=== PATIENT | female | born 1980 | race Caucasian/White ===

== ENCOUNTER 2019-02-25 04:28 | Emergency (ER) | payer OTHER ==
[2019-02-25] MEDS ORDERED: NA CHLORIDE 0.9% 1,000 ML ONE (05:00)
[2019-02-25 05:25] LABS: Urine Blood 2+ (NEG); Urine Glucose NEGATIVE (NEG); Urine Specific Gravity >1.030 (1.005-1.030)
[2019-02-25 05:26] LABS: Urine Protein 1+ (NEG)
[2019-02-25 05:26] LABS: Urine Specific Gravity >1.030 (1.005-1.030)
[2019-02-25 05:29] LABS: Absolute Lymphocytes (CBC) 2.9 K/uL (0.7-4.9); Basophils % 0.3 % (0-1.3); Eosinophils % 1.2 % (0-4.4); Hematocrit 44.5 % (36.0-45.0); Lymphocytes % 37.4 % (15.3-44.8); MPV 7.6 fL (7.6-11.3); Monocytes % 10.7 % (3.3-12.3); RBC Red Blood Cell Count 4.62 M/uL (3.86-4.86)
[2019-02-25 05:33] LABS: Potassium 3.5 mmol/L (3.5-5.1)
--- NOTE | 2019-02-25 06:03 | ER ---
Nurse's Notes [facility] Name: Marielle Orozco Age: 38 yrs Sex: Female : 1980 Arrival Date: 02/25/2019 Time: 04:29 Bed 7 Private MD: Diagnosis: Threatened ; related conditions, unspecified, first trimester Presentation: 02/25 04:37 Presenting complaint: Patient states: "I found out I was yesterday with a home jd3 test. I took 2 and both said positive. today I am having bright red bleeding.". Transition of care: patient was not received from another setting of care. Onset of symptoms was February 25, 2019. Risk Assessment: Do you want to hurt yourself or someone else? Patient reports no desire to harm self or others. Initial Sepsis Screen: Does the patient meet any 2 criteria? No. Patient's initial sepsis screen is negative. Does the patient have a suspected source of infection? No. Patient's initial sepsis screen is negative. Care prior to arrival: None. 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 - Social history:: Smoking status: Patient/guardian denies using tobacco, the patient reports quitting approximately 0.5 years ago. - Ebola Screening: : Patient negative for fever greater than or equal to 101.5 degrees Fahrenheit, and additional compatible Ebola Virus Disease symptoms. - Family history:: not pertinent. Screenin:37 Abuse screen: Denies threats or abuse. Denies injuries from another. Nutritional cc3 screening: No deficits noted. Tuberculosis screening: No symptoms or risk factors identified. Fall Risk Ambulatory Aid- None/Bed Rest/Nurse Assist (0 pts). Gait- Normal/Bed Rest/Wheelchair (0 pts) Mental Status- Oriented to own ability (0 pts). Assessment: 04:42 General: Appears in no apparent distress. uncomfortable, Behavior is calm, cooperative, jd3 appropriate for age. Pain: Denies pain. Neuro: Level of Consciousness is awake, Oriented to person, place, time, situation. Cardiovascular: Denies chest pain, Capillary refill < 3 seconds Patient's skin is warm and dry. Respiratory: Airway is patent Respiratory effort is even, unlabored, Respiratory pattern is regular, symmetrical, Denies shortness of breath. GI: No signs and/or symptoms were reported involving the gastrointestinal system. : Reports vaginal bleeding that is bright red, moderate flow. EENT: No signs and/or symptoms were reported regarding the EENT system. Derm: Skin is intact, Skin is dry, Skin is normal, Skin temperature is warm. Musculoskeletal: Circulation, motion, and sensation intact. Range of motion: intact in all extremities. 05:51 Reassessment: Patient appears in no apparent distress at this time. Patient and/or jd3 family updated on plan of care and expected duration. Pain level reassessed. Patient is alert, oriented x 3, equal unlabored respirations, skin warm/dry/pink. Patient denies pain at this time. Vital Signs: 04:40 BP 124 / 96; Pulse 84; Resp 17 S; Temp 98.1(O); Pulse Ox 99% on R/A; Weight 79.38 kg jd3 (R); Height 5 ft. 4 in. (162.56 cm) (R); Pain 0/10; 05:32 BP 114 / 79 Supine; Pulse 79; Pulse Ox 99% on R/A; jd3 05:33 BP 123 / 82 Sitting; Pulse 72; Pulse Ox 100% on R/A; jd3 05:34 BP 121 / 91 Standing; Pulse 79; Resp 17 S; Pulse Ox 97% on R/A; Pain 0/10; jd3 04:40 Body Mass Index 30.04 (79.38 kg, 162.56 cm) jd3 ED Course: 04:29 Patient arrived in ED. ds1 04:37 Urban Enrique RN is Primary Nurse. jd3 04:37 Arm band placed on right wrist. Patient notified of wait time. cc3 04:37 Patient has correct armband on for positive identification. Bed in low position. Call cc3 light in reach. Side rails up X 1. Pulse ox on. NIBP on. 04:39 Triage completed. jd3 04:40 Aleksandar Mann MD is Attending Physician. [facility] 05:00 Inserted saline lock: 20 gauge in right antecubital area, using aseptic technique. cc3 Blood collected. 05:39 IV is swollen, with fluids not infusing freely, without good blood return, IV jd3 discontinued, intact, bleeding controlled, No redness/swelling at site. Pressure dressing applied. 06:01 Saul Mckee MD is Referral Physician. jim 07:24 No provider procedures requiring assistance completed. aa5 Administered Medications: 05:00 Drug: NS 0.9% 1000 ml Route: IV; Rate: 1 bolus; Site: right antecubital; cc3 07:10 Drug: RhoGAM (Human) 300 mcg Route: IM; Site: right deltoid; aa5 07:24 Follow up: Response: No adverse reaction aa5 Outcome: 06:02 Discharge ordered by . jim 07:24 Discharged to home ambulatory. aa5 07:24 Condition: stable 07:24 Discharge instructions given to patient, Instructed on discharge instructions, follow up and referral plans. medication usage, Demonstrated understanding of instructions, follow-up care, medications, Prescriptions given X 1. 07:25 Patient left the ED. aa5 Signatures: Aleksandar Mann MD MD cha Sanford, Demi ds1 Sherry Conde, RN RN aa5 Urban Enrique RN RN Anaid Gates 3
--- NOTE | 2019-02-25 06:03 | EDPHYS ---
Physician Documentation [facility] Name: Marielle Orozco Age: 38 yrs Sex: Female : 1980 Arrival Date: 02/25/2019 Time: 04:29 Bed 7 Private MD: CARLEEN Physician Aleksandar Mann HPI: 02/25 04:44 This 38 yrs old Female presents to ER via Ambulatory with complaints of jim Vaginal Bleeding, + Preg <12wks. 04:44 The patient presents to the emergency department with vaginal bleeding. The estimated jim gestational age is 4 weeks. course: care: none. Previous pregnancies: in previous pregnancies patient has had vaginal delivery. Associated signs and symptoms: The patient has no apparent associated signs or symptoms. The patient has not experienced similar symptoms in the past. 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 - Social history:: Smoking status: Patient/guardian denies using tobacco, the patient reports quitting approximately 0.5 years ago. - Ebola Screening: : Patient negative for fever greater than or equal to 101.5 degrees Fahrenheit, and additional compatible Ebola Virus Disease symptoms. - Family history:: not pertinent. ROS: 04:44 Constitutional: Negative for fever, chills, and weight loss, Eyes: Negative for injury, jim pain, redness, and discharge, ENT: Negative for injury, pain, and discharge, Neck: Negative for injury, pain, and swelling, Cardiovascular: Negative for chest pain, palpitations, and edema, Respiratory: Negative for shortness of breath, cough, wheezing, and pleuritic chest pain, Abdomen/GI: Negative for abdominal pain, nausea, vomiting, diarrhea, and constipation, Back: Negative for injury and pain, MS/Extremity: Negative for injury and deformity, Skin: Negative for injury, rash, and discoloration, Neuro: Negative for headache, weakness, numbness, tingling, and seizure, Psych: Negative for depression, anxiety, suicide ideation, homicidal ideation, and hallucinations, Allergy/Immunology: Negative for hives, rash, and allergies, Endocrine: Negative for neck swelling, polydipsia, polyuria, polyphagia, and marked weight changes, Hematologic/Lymphatic: Negative for swollen nodes, abnormal bleeding, and unusual bruising. 04:44 : Positive for vaginal bleeding. Exam: 04:44 Constitutional: This is a well developed, well nourished patient who is awake, alert, jim and in no acute distress. Head/Face: Normocephalic, atraumatic. Eyes: Pupils equal round and reactive to light, extra-ocular motions intact. Lids and lashes normal. Conjunctiva and sclera are non-icteric and not injected. Cornea within normal limits. Periorbital areas with no swelling, redness, or edema. ENT: Nares patent. No nasal discharge, no septal abnormalities noted. Tympanic membranes are normal and external auditory canals are clear. Oropharynx with no redness, swelling, or masses, exudates, or evidence of obstruction, uvula midline. Mucous membranes moist. Neck: Trachea midline, no thyromegaly or masses palpated, and no cervical lymphadenopathy. Supple, full range of motion without nuchal rigidity, or vertebral point tenderness. No Meningismus. Chest/axilla: Normal chest wall appearance and motion. Nontender with no deformity. No lesions are appreciated. Cardiovascular: Regular rate and rhythm with a normal S1 and S2. No gallops, murmurs, or rubs. Normal PMI, no JVD. No pulse deficits. Respiratory: Lungs have equal breath sounds bilaterally, clear to auscultation and percussion. No rales, rhonchi or wheezes noted. No increased work of breathing, no retractions or nasal flaring. Abdomen/GI: Soft, non-tender, with normal bowel sounds. No distension or tympany. No guarding or rebound. No evidence of tenderness throughout. Back: No spinal tenderness. No costovertebral tenderness. Full range of motion. Skin: Warm, dry with normal turgor. Normal color with no rashes, no lesions, and no evidence of cellulitis. MS/ Extremity: Pulses equal, no cyanosis. Neurovascular intact. Full, normal range of motion. Neuro: Awake and alert, GCS 15, oriented to person, place, time, and situation. Cranial nerves II-XII grossly intact. Motor strength 5/5 in all extremities. Sensory grossly intact. Cerebellar exam normal. Normal gait. Psych: Awake, alert, with orientation to person, place and time. Behavior, mood, and affect are within normal limits. 04:44 : CVA tenderness, is absent. Vital Signs: 04:40 BP 124 / 96; Pulse 84; Resp 17 S; Temp 98.1(O); Pulse Ox 99% on R/A; Weight 79.38 kg jd3 (R); Height 5 ft. 4 in. (162.56 cm) (R); Pain 0/10; 05:32 BP 114 / 79 Supine; Pulse 79; Pulse Ox 99% on R/A; jd3 05:33 BP 123 / 82 Sitting; Pulse 72; Pulse Ox 100% on R/A; jd3 05:34 BP 121 / 91 Standing; Pulse 79; Resp 17 S; Pulse Ox 97% on R/A; Pain 0/10; jd3 04:40 Body Mass Index 30.04 (79.38 kg, 162.56 cm) jd3 MDM: 04:43 Patient medically screened. [facility] 04:46 Data reviewed: vital signs, nurses notes, lab test result(s). [facility] 02/25 04:42 Order name: Quantitative Hcg [facility] 02/25 04:42 Order name: Abo/rh Typing [facility] 02/25 04:42 Order name: Basic Metabolic Panel; Complete Time: 05:48 [facility] 02/25 04:42 Order name: CBC with Diff; Complete Time: 05:48 [facility] 02/25 04:44 Order name: HCG, Quantitative; Complete Time: 05:48 [facility] 02/25 04:44 Order name: ABO/RH typing [facility] 02/25 04:50 Order name: Urine Dipstick--Ancillary (enter results); Complete Time: 05:48 02/25 04:51 Order name: Urine --Ancillary (enter results); Complete Time: 05:48 02/25 06:17 Order name: Rh Typing [facility] [place] 02/25 04:42 Order name: Urine Test (obtain specimen); Complete Time: 04:50 [facility] 02/25 04:42 Order name: IV Saline Lock; Complete Time: 05:04 [facility] 02/25 04:42 Order name: Labs collected and sent; Complete Time: 05:04 [facility] 02/25 04:42 Order name: NPO; Complete Time: 04:50 [facility] 02/25 04:42 Order name: Urine Dipstick-Ancillary (obtain specimen); Complete Time: 04:50 [facility] 02/25 06:17 Order name: Antibody Screen EDMS 02/25 06:17 Order name: Fetalscreen EDMS 02/25 06:17 Order name: Cord Rh type EDMS 02/25 06:17 Order name: Rhogam EDMS Administered Medications: 05:00 Drug: NS 0.9% 1000 ml Route: IV; Rate: 1 bolus; Site: right antecubital; cc3 07:10 Drug: RhoGAM (Human) 300 mcg Route: IM; Site: right deltoid; aa5 07:24 Follow up: Response: No adverse reaction aa5 Disposition: 02/25/19 06:02 Discharged to Home. Impression: Threatened , related conditions, unspecified, first trimester. - Condition is Stable. - Discharge Instructions: Threatened Miscarriage, Vaginal Bleeding During , First Trimester, First Trimester of , [id number], First Trimester of , Threatened Miscarriage, [id number], Pelvic Rest, Vaginal Bleeding During , First Trimester, [id number]. - Prescriptions for Vitamin 27- 0.8 mg Oral Tablet - take 1 tablet by ORAL route once daily; 30 tablet. - Medication Reconciliation Form, Thank You Letter, Antibiotic Education, Prescription Opioid Use form. - Follow up: Private Physician; When: 2 - 3 days; Reason: Recheck today's complaints, Continuance of care, Re-evaluation by your physician. Follow up: Saul Mckee; When: 2 - 3 days; Reason: Recheck today's complaints, Re-evaluation by your physician. - Problem is new. - Symptoms have improved. Signatures: Dispatcher [employer] EDMS Aleksandar Mann MD MD cha Calderon, Audri, RN RN aa5 Urban Enrique RN RN Anaid Gates cc3 Corrections: (The following items were deleted from the chart) 06:03 06:01 Antibody Screen ordered. EDMS EDMS 06:03 06:01 Fetalscreen ordered. EDMS EDMS 06:03 06:01 Cord Rh type ordered. EDMS EDMS 06:17 05:59 RHOGAM+BB.LAB.BRZ ordered. EDMO EDMS 06:17 06:00 Rh Typing ordered. [facility] [place] EDMO 06:26 06:02 02/25/2019 06:02 Discharged to Home. Impression: Threatened . Condition jim is Stable. Discharge Instructions: Threatened Miscarriage, Vaginal Bleeding During , First Trimester, First Trimester of , [id number], First Trimester of , Threatened Miscarriage, [id number], Pelvic Rest. Prescriptions for Vitamin 27-0.8 mg Oral Tablet - take 1 tablet by ORAL route once daily; 30 tablet. and Forms are Medication Reconciliation Form, Thank You Letter, Antibiotic Education, Prescription Opioid Use. Follow up: Private Physician; When: 2 - 3 days; Reason: Recheck today's complaints, Continuance of care, Re-evaluation by your physician. Follow up: Saul Mckee; When: 2 - 3 days; Reason: Recheck today's complaints, Re-evaluation by your physician. Problem is new. Symptoms have improved. [facility] 07:25 06:26 02/25/2019 06:02 Discharged to Home. Impression: Threatened ; aa5 related conditions, unspecified, first trimester. Condition is Stable. Discharge Instructions: Threatened Miscarriage, Vaginal Bleeding During , First Trimester, First Trimester of , [id number], First Trimester of , Threatened Miscarriage, [id number], Pelvic Rest. Prescriptions for Vitamin 27-0.8 mg Oral Tablet - take 1 tablet by ORAL route once daily; 30 tablet. and Forms are Medication Reconciliation Form, Thank You Letter, Antibiotic Education, Prescription Opioid Use. Follow up: Private Physician; When: 2 - 3 days; Reason: Recheck today's complaints, Continuance of care, Re-evaluation by your physician. Follow up: Saul Mckee; When: 2 - 3 days; Reason: Recheck today's complaints, Re-evaluation by your physician. Problem is new. Symptoms have improved. jim
== END 2019-02-25 07:25 | disposition home or self-care (01) ==
LOC: ER 04:28
DX: O20.0 Threatened abortion (principal); Z3A.01 Less than 8 weeks gestation of pregnancy; O99.281 Endocrine, nutritional and metabolic diseases complicating pregnancy, first trimester; E03.9 Hypothyroidism, unspecified; Z87.891 Personal history of nicotine dependence
CPT/HCPCS: 36415; 80048; 81003; 81025; 84702; 85025; 86850; 86900; 86901; 96372; 99284; J2790; J7030

== ENCOUNTER 2021-01-27 16:30 | Emergency (ER) | payer OTHER ==
--- OUTSIDE RECORDS SUMMARY | 2021-01-27 16:33 | XMS REPORT | Continuity of Care Document ---
:1980 Author Organization [facility] t Address [address] [place] [address] Care Team Providers Name Role Phone Stefan Fu Attending Clinician Kiersten Lopez DO Attending Clinician Provider, Urgent Care Attending Clinician Unavailable Doctor Unassigned, Name Attending Clinician Unavailable Ela Calderón Attending Clinician Payers Payer Name Policy Type Policy Number Effective Date Expiration Date S ource Problems Condition Condition Condition Status Onset Resolution Last Treating Co mments Source Name Details Category Date Date Treatment Clinician Date M25.50 - Diagnosis Active 2019-09-30 M emoria PAIN IN 09-30 11:51:00 l UNSPECIFIE M25.50 - 00:01: He rmann D JOINT PAIN IN 00 UNSPECIFIE D JOINT Active 09/30/2019 MH OPID Gareth Hypothyroi Problem Resolve 2021-01-16 Memoria dism d 21:57:10 l (disorder) Yonatan n Hypothyroi dism (disorder) Resolved Problem 01/16/2021 [facility] 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 21:57:10 l (disorder) Yonatan n Sjgren's syndrome (disorder) Resolved Problem 01/16/2021 [facility] Migraine Problem Active 2021-01-16 Mem oria (disorder) 21:57:10 l Migraine Yonatan n (disorder) Active Problem 01/16/2021 [facility] Thyroid Thyroid Problem Active [facility] dysfunctio dysfunctio Edbby kes - n n Memoria l [facility] ent Clinics Common Common Problem Active [facility] cold virus cold virus Debby kes - Memoria l [facility] Fever, Fever, Problem Active [facility] unspecifie unspecifie Debby kes - d fever d fever Memoria cause cause l [facility] Abnormal Abnormal Problem Active [facility] - function function Memori a test test l [facility] Clinics Malaise Malaise Problem Active [facility] - fatigue fatigue [facility] l [facility] Salivary Salivary Problem Active [facility] disorder [facility] - [facility]oria l [facility]ics Breathing Breathing Problem Active [facility] difficulty difficulty Debby kes - Memoria l [facility]ics Viral URI Viral URI Problem Active [facility] Allergies, Adverse Reactions, Alerts Allergy Allergy Status Severity Reaction(s) Onset Inactive Treating Comm ents Source Name Type Date Date Clinician No Known DA Active [facility] [address] [facility] No Known No Known Active Memori a Medicati Medicati l on on Gareth Solorzano Allergie s s Social History Social Habit Start Date Stop Date Quantity Comments Source Social History 2020-10-31 2020-10-31 [facility] [place] 19:27:41 19:27:41 Medications Ordered Filled Start Stop Current Ordering Indication Dosage Frequency Signature Comments Components Source Medication Medication Date Date Medication? Clinician (SIG) Name Name levothyroxi Yes 137 Memori a ne 137 mcg 2-24 microgram l (0.137 mg) 19:36: = 1 tab, Her mariscal oral tablet 00 PO, Daily, # 30 tab, 0 Refill(s) Albuterol Albuterol 2018-09 Yes Wanda [address] [facility] Sulfate HFA Sulfate HFA 1-29 [place] needed [facility] - 00:[facility]: [facility]oria 00 l [facility] Synthroid Synthroid 2018-09 Yes Wanda [address] [facility] 0-30 [place] in the [facility] - 00:00: morning on an empty l stomach Outpati ent Clinics Chantix Chantix Yes Wanda [address] [facility] Continuing Continuing [place] Debby kes - Month Nasir Month Nasir Memor ia l Outpati ent Clinics Synthroid Synthroid Yes Wanda [address] [facility] [place] ORALLY [facility] - ONCE DAILY Memoria l Outpati ent Clinics Vital Signs Vital Name Observation Time Observation Value Comments Source Systolic (mm Hg) 2020-10-31 19:21:00 Conrado rial Gareth Diastolic (mm Hg) 2020-10-31 19:21:00 Mem orial [place] Heart Rate 2020-10-31 19:21:00 [facility] Gareth Respitory Rate 2020-10-31 19:21:00 Memori al Gareth Height 2020-10-31 19:21:00 160.02 cm [facility] Gareth Weight 2020-10-31 19:21:00 [facility] [place] BMI Calculated 2020-10-31 19:21:00 Remedios al [place] Procedures Procedure Date / Time Performed Performing Clinician Jessica e Thyroidectomy [facility] Gareth [facility] by abdominal approach Encounters Start End Encounter Admission Attending Care Care Encounter Source Date/Time Date/Time Type Type Clinicians Facility Department ID 2021-01-14 2021-01-14 [id number] 14:30:00 14:30:00 Ko 02 Stefan 2020-11-28 2020-11-28 Outpatient ERIC FuSCHPATI MISCHER [id number] 15:45:00 15:45:00 Ko 01 Stefan 2020-11-28 2020-11-28 [facility] [id number] 09:06:00 15:19:00 Anny Arboleda [id number] [place] [id number] [place] [id number] 2020-11-28 2020-11-28 Urgent Provider, [facility] [id number] 08:20:48 09:05:44 Care [facility] [id number] Care [place] [id number] Professio [id number] nal [address] 2020-11-28 2020-11-28 Orders Doctor ASTON [id number] 00:00:00 00:00:00 Only Unassigned, AMPARO [id number] [place] [facility] [id number] [id number] 2020-11-01 2020-11-02 Outpatient MHMISCHER MHMISCHER [id number] 09:12:48 23:59:59 00 2020-10-31 2020-10-31 [facility] [id number] 13:45:00 23:59:59 Ko 00 Stefan 2019-09-30 2019-09-30 [facility] [id number] 11:42:00 23:59:00 Deb Mahmood 00 2019-08-05 2019-08-05 Outpatient Petra Olsen [id number] 10:40:00 10:40:00 [facility] ent [facility] 2019-07-06 2019-07-06 Outpatient Brazmakayla Lambertt [id number] 18:32:00 18:32:00 [facility] 2019-07-05 2019-07-05 [facility] [place] [id number] 17:57:00 17:57:00 [facility] ent [facility] 2019-07-04 2019-07-04 [facility] [id number] 13:00:00 13:00:00 [facility] ent [facility] Results Test Description Test Time Test Comments Results Result Sour e Comments FALLOPIAN 2019-03-14 TUBE,ECTOPIC PREGN 14:43:00 --------RUN DATE: 03/14/19 [facility] PAGE 1 RUN TIME: 1458 Specimen Inquiry RUN USER: INTERFACE --------[id number] LOC: KANDY U #: [id number] AGE/SX: 38/F ROOM: RE03/08/19REG DR: Brock Davenport MD : 84 BED: DIS: STATUS: [facility] TLOC: -------- SPEC #: [id number] RECD: 03/08/19 STATUS: HELENA ZEYAD #: [id number] CHILO: 03/08/19- SUBM DR: Brock Davenport MD ENTERED: 03/09/19 SP TYPE: FALLECT OTHR DR: ORDERED: LEVEL IV/2 CODES: [id number] - ENDOMETRIUM, NO [id number] - FALLOPIAN TUBE PROCEDURES: LEVEL IV (Incomplete) TISSUES: FALLOPIAN TUBE, NOS - LEFT FALLOPIAN TUBE WITH ECTOPIC ENDOMETRIUM, NOS - ENDOMETRIAL BIOPSY CLINICAL HISTORY 38 year old, left ectopic (kr) FINAL DIAGNOSIS Left fallopian tube with tubal ectopic , excision: - fallopian tube with ectopic identified Endometrium, biopsy: - fragments of endometrium with gestational alterations - no products of conception identified Tissue code 1 CPT code(s): 22297 x2 pkg/wpd 03/14/19 GROSS DESCRIPTION ANATOMIC SOURCE OF TISSUE (per Requisition): 1. Left fallopian tube with tubal ectopic 2. Endometrial biopsy Each specimen is labeled with the patient's name and medical record number. Specimen #1 is designated "left fallopian tube with tubal ectopic " and consists of a 6.0 cm in length and 1.8 cm in diameter fimbriated fallopian tube. The serosa is pink-purple and hyperemic. The lumen is dilated and occluded by 2.5 x 0.8 x 0.8 cm aggregate of dark red clotted blood and agosto-pink soft tissue. There is no definite villous material or an embryo. Wedger Machine sections are submitted labeled A1 and A2. CONTINUED ON NEXT PAGE --------RUN DATE: 03/14/19 [facility] PAGE 2 RUN TIME: 1458 Specimen Inquiry RUN USER: INTERFACE --------SPEC #: [id number] PATIENT: AC ESCOBAR #[id number] (Continued) GROSS DESCRIPTION (Continued) Specimen #2 is designated "endometrial biopsy" and consists of a 1.5 x 0.6 x 0.2 cm aggregate of multiple agosto-pink soft tissues admixed with blood-tinged mucoid material, submitted in toto labeled B1. neeraj 03/09/19 @ 5869 MICROSCOPIC DESCRIPTION Specimen #1 consists of a dilated segment of fallopian tube containing blood clot and a few immature chorionic villi containing mild trophoblast proliferation that is mainly polar. No central cisterns, intravillous inclusions or villous scalloping are identified. A completely transected segment of fallopian tube is identified. Specimen #2 consists of fragments of endometrium with gestational alterations. No immature chorionic villi, trophoblasts or structures are identified. jennifer/heydi 03/14/19 Signed Georgie Marquez 03/14/19 1443 -------- END OF REPORT HCG SERUM 2019-03-08 13:33:00 Test Item Value Reference Range Interpretation Comme nts HCG SERUM (test code = HCG) 503 INTERPRETATION:VALUES BETWEEN 15-20 milliInternatio nal units/mL NEED TO BERETESTED WITHIN 48 HOURS . All units for these ranges are in milliInternatio nalunits/mL0-1 WK AFTER CONCEPTION 0-5 0 1-2 WKS AFTER CONCEPTION 40-3002-3 WKS AFTER CONCEPTION 100-1,0003-4 WK S AFTER CONCEPTION 500-6,0001-2 MO NTHS AFTER CONCEPTION 5,000-200,0002- 3 MONTHS AFTER CONCEPTION 10,000-100,0002 ND TRIMESTER 3,000-50,0003RD TRIMESTER 1,000-50,000 SP ECIMENS WITH AN HCG LEVEL FROM 0-6 milliInternatio nalunits/mL SHOULD BE CONSIDERED NEGATIVE COMPREHENSIVE METABOLIC [id number] 13:27:00 Test Item Value Reference Range Interpretation Comments SODIUM (test code = NA) 138 mEq/L 135-145 N POTASSIUM (test code = 4.0 mEq/L 3.5-5.0 N K) CHLORIDE (test code = 103 mEq/L 100-115 N CL) CARBON DIOXIDE (test 26 mEq/L 22-31 N code = CO2) ANION GAP (test code = 12.70 10-20 N GAP) GLUCOSE (test code = 87 mg/dL 65-110 N GLU) BLOOD UREA NITROGEN 17 mg/dL 7-18 N (test code = BUN) GLOMERULAR FILTRATION 71 ml/min >60 N RATE (test code = GFR) CREATININE (test code = 0.9 mg/dL 0.5-1.0 N CREAT) TOTAL PROTEIN (test 8.0 gm/dL 6.3-8.2 N code = PROT) ALBUMIN (test code = 3.9 gm/dL 3.4-4.8 N ALB) CALCIUM (test code = 9.3 mg/dL 8.4-10.2 N CA) BILIRUBIN TOTAL (test 0.5 mg/dL 0.2-1.0 Result s verified by code = BILT) repeat analysis SGOT/AST (test code = 53 units/L 15-37 H Result s verified by AST) repeat analysis SGPT/ALT (test code = 98 units/L 12-78 H ALT) ALKALINE PHOSPHATASE 108 units/L 46-116 N TOTAL (test code = ALKP) CBC W/AUTO [id number] 13:14:00 Test Item Value Reference Range Interpretation Comments WHITE BLOOD CELL (test code = WBC) 9.1 K/mm3 6.6-12.1 N RED BLOOD CELL (test code = RBC) 4.53 M/mm3 3.45-5.01 N HEMOGLOBIN (test code = HGB) 14.4 g/dL 10.7-13.9 H HEMATOCRIT (test code = HCT) 43.8 % 32.1-42.1 H MEAN CELL VOLUME (test code = MCV) 97 fL 84.1-94.8 H MEAN CELL HGB (test code = MCH) 31.8 pg 27-35 N MEAN CELL HGB CONCETRATION (test 32.9 gm/dL 32.2-34.1 N code = MCHC) RED CELL DISTRIBUTION WIDTH (test 12.6 % 12.4-16.5 N code = RDW) PLATELET COUNT (test code = PLT) 231 K/mm3 133-385 N IMMATURE PLATELET FRACTION (test 0.0 % 0.0-10.8 N code = IPF) MEAN PLATELET VOLUME (test code = 9.0 fl 9.1-12.7 L MPV) NEUTROPHIL % (test code = NT%) 64.4 % 56.5-79.4 N LYMPHOCYTE % (test code = LY%) 26.1 % 14.3-34.3 N MONOCYTE % (test code = MO%) 8.2 % 5.1-10.4 N EOSINOPHIL % (test code = EO%) 0.8 % 0.1-3.0 N BASOPHIL % (test code = BA%) 0.3 % 0.1-1.0 N NEUTROPHIL # (test code = NT#) 5.9 K/mm3 LYMPHOCYTE # (test code = LY#) 2.4 K/mm3 MONOCYTE # (test code = MO#) 0.8 K/mm3 EOSINOPHIL # (test code = EO#) 0.07 K/mm3 BASOPHIL # (test code = BA#) 0.0 K/mm3 RBC MORPHOLOGY REQUIRED (test code NORMAL NORMAL = RBCM) PLATELET MORPHOLOGY REQUIRED (test NORMAL NORMAL code = PLTMR) - US PELVIS [id number] 15:13:00 Patient Name: AC ESCOBAR Unit No: [id number] EXAMS: CPT CODE: [id number] US PELVIS COMPLETE 26738 CLINICAL HISTORY: Left tubal . COMPARISON: March 04, 2019. Real- time ultrasound examination of the pelvis was performed using transabdominal and endovaginal approach. The uterus measures 8.5 x 3.7 x 4.9 cm in greatest dimensions with endometrium measuring 7 mm in AP dimension. No well-defined intrauterine sac is noted. There is no evidence of uterine fibroid or other significant uterine abnormality. The right ovary measures 29 x 16 x 16 mm and containsa corpus luteum measuring 15 x 13 x 13 mm. The left ovary measures 27 x 18 x 15 mm and has normalsonographic appearance. Separate from the left ovary, there is a 31 x 23 x 19 mm adnexal ring is identified. It is larger than previous examination and is suspicious for an ectopic in this location. Small amount of anechoic free fluid is present in the cul-de-sac. IMPRESSION: 1. No evidence of intrauterine seen. 2. Left adnexal ring with small amount of anechoic free fluid in the pelvis suspicious for a small ectopic . at 1513 Reported and signed by: Roland Beaulieu MD CC: Dilip Do MD Technologist: Tiffanie Owen RDMS, RVT Probe: Trnscrbd D/ (1513) t.SDR.YOS Orig Print D/T: S: 03/07/2019 (1516) [facility] NAME: SHAWNAC Radiology Department PHYS: HARAD. - Dilip Montes [address] : 1980 AGE: 38 SEX: F [place] [address] LOC: Contreras.RAD PHONE #: [phone] EXAM DATE: 03/07/2019 STATUS: REG CLI FAX #: [phone] RAD NO: Page 1 Signed Report Patient Name: AC ESCOBAR Harjit Unit No: [id number] EXAMS: CPT CODE: [id number] US PELVIS COMPLETE 64641 <Continued> [facility] NAME: AC ESCOBAR Radiology Department PHYS: HARAD. - Dilip Montes [address] : 1980 AGE: 38 SEX: F [place] [address] LOC: DuncanRAD PHONE #: [phone] EXAM DATE: 03/07/2019 STATUS: REG CLI FAX #: [phone] RAD NO: Page 2 Signed Report- US TRANSVAGINAL [id number] 15:13:00 Patient Name: AC ESCOBAR Unit No: [id number] EXAMS: CPT CODE: [id number] US TRANSVAGINAL W/PELVIS 60220 CLINICAL HISTORY: Left tubal . COMPARISON: March 04, 2019. Real-time ultrasound examination of the pelvis was performed using transabdominal and endovaginal approach. The uterus measures 8.5 x 3.7 x 4.9 cm in greatest dimensions with endometrium measuring 7 mm in AP dimension. No well-defined intrauterine sac is noted. There is no evidence of uterine fibroid or other significant uterine abnormality. The right ovary measures 29 x 16 x 16 mm and containsa corpus luteum measuring 15 x 13 x 13 mm. The left ovary measures 27 x 18 x 15 mm and has normalsonographic appearance. Separate from the left ovary, there is a 31 x 23 x 19 mm adnexal ring is identified. It is larger than previous examination and is suspicious for an ectopic in this location. Small amount of anechoic free fluid is present in the cul-de-sac. IMPRESSION: 1. No evidence of intrauterine seen. 2. Left adnexal ring with small amount of anechoic free fluid in the pelvis suspicious for a small ectopic . at 1513 Reported and signed by: Roland Beaulieu MD CC: Dilip Do MD Technologist: Tiffanie Owen RDMS, RVT Probe: [id number] Trnscrbd D/ (1513) [email or web address] Orig Print D/T: S: 03/07/2019 (1516) [facility] NAME: AC ESCOBAR Radiology Department PHYS: MICHAEL.Jeny - Dilip Montes [address] : 1980 AGE: 38 SEX: F [place], [place] [address] LOC: F.RAD PHONE #: [phone] EXAM DATE: 03/07/2019 STATUS: REG CLI FAX #: [phone] RAD NO: Page 1 Signed Report Patient Name: AC ESCOBAR Unit No: [id number] EXAMS: CPT CODE: [id number] US TRANSVAGINALW/PELVIS 38598 <Continued> [facility] NAME: AC ESCOBAR Radiology Department PHYS: MICHAEL. - Dilip Montes [address] : 1980 AGE: 38 SEX: F [place] [address] LOC: TYLER PHONE #: [phone] EXAM DATE: 03/07/2019 STATUS: REG CLI FAX #: [phone] RAD NO: Page 2 Signed ReportHCG [id number] 14:26:00 Test Item Value Reference Range Interpretation Comments HCG SERUM (test 409 INTERPRETATI ON:VALUES BETWEEN code = HCG) 15-20 milliInte rnational units/mL NEED T O BERETESTED WITHIN 48 HOURS . All units for these ranges ar e in milliInternatio nalunits/mL0-1 WK AFTER CONCEP TION 0-50 1-2 W KS AFTER CONCEPTION 40-3002-3 WKS A FTER CONCEPTION 100-1 ,0003-4 WKS AFTER CONCEPTIO N 500-6,0001-2 MO NTHS AFTER CONCEPTION 5,000-200,0002- 3 MONTHS AFTER CONCEPTION 10,000-100,0002 ND TRIMESTER 3,000-50,0003RD TRIMESTER 1 ,000-50,000 SPECIMENS WITH AN HCG LEVEL FROM 0-6 milliInternatio nalunits/mL SHOULD BE CONSI DERED NEGATIVE [phone] CALLCOMPREHENSIVE METABOLIC [id number] 14:13:00 Test Item Value Reference Range Interpretation Comments SODIUM (test code = NA) 138 mEq/L 135-145 N POTASSIUM (test code = K) 4.2 mEq/L 3.5-5.0 N CHLORIDE (test code = CL) 105 mEq/L 100-115 N CARBON DIOXIDE (test code = CO2) 29 mEq/L 22-31 N ANION GAP (test code = GAP) 8.70 10-20 L GLUCOSE (test code = GLU) 89 mg/dL 65-110 N BLOOD UREA NITROGEN (test code = 15 mg/dL 7-18 N BUN) GLOMERULAR FILTRATION RATE (test 56 ml/min >60 L code = GFR) CREATININE (test code = CREAT) 1.1 mg/dL 0.5-1.0 H TOTAL PROTEIN (test code = PROT) 7.6 gm/dL 6.3-8.2 N ALBUMIN (test code = ALB) 3.6 gm/dL 3.4-4.8 N CALCIUM (test code = CA) 8.6 mg/dL 8.4-10.2 N BILIRUBIN TOTAL (test code = 0.2 mg/dL 0.2-1.0 N BILT) SGOT/AST (test code = AST) 42 units/L 15-37 H SGPT/ALT (test code = ALT) 83 units/L 12-78 H ALKALINE PHOSPHATASE TOTAL (test 132 units/L 46-116 H code = ALKP) [phone] [facility] W/AUTO [id number] 14:02:00 Test Item Value Reference Range Interpretation Comments WHITE BLOOD CELL (test code = WBC) 8.9 K/mm3 6.6-12.1 N RED BLOOD CELL (test code = RBC) 4.22 M/mm3 3.45-5.01 N HEMOGLOBIN (test code = HGB) 13.3 g/dL 10.7-13.9 N HEMATOCRIT (test code = HCT) 42.3 % 32.1-42.1 H MEAN CELL VOLUME (test code = MCV) 100 fL 84.1-94.8 H MEAN CELL HGB (test code = MCH) 31.5 pg 27-35 N MEAN CELL HGB CONCETRATION (test 31.4 gm/dL 32.2-34.1 L code = MCHC) RED CELL DISTRIBUTION WIDTH (test 12.9 % 12.4-16.5 N code = RDW) PLATELET COUNT (test code = PLT) 243 K/mm3 133-385 N IMMATURE PLATELET FRACTION (test 0.0 % 0.0-10.8 N code = IPF) MEAN PLATELET VOLUME (test code = 9.2 fl 9.1-12.7 N MPV) NEUTROPHIL % (test code = NT%) 57.0 % 56.5-79.4 N LYMPHOCYTE % (test code = LY%) 31.6 % 14.3-34.3 N MONOCYTE % (test code = MO%) 9.6 % 5.1-10.4 N EOSINOPHIL % (test code = EO%) 1.1 % 0.1-3.0 N BASOPHIL % (test code = BA%) 0.5 % 0.1-1.0 N NEUTROPHIL # (test code = NT#) 5.0 K/mm3 LYMPHOCYTE # (test code = LY#) 2.8 K/mm3 MONOCYTE # (test code = MO#) 0.9 K/mm3 EOSINOPHIL # (test code = EO#) 0.10 K/mm3 BASOPHIL # (test code = BA#) 0.0 K/mm3 RBC MORPHOLOGY REQUIRED (test code NORMAL NORMAL = RBCM) PLATELET MORPHOLOGY REQUIRED (test NORMAL NORMAL code = PLTMR) [phone] CALL- US TRANSVAGINAL [id number] 09:45:00 Patient Name: AC ESCOBAR Unit No: [id number] EXAMS: CPT CODE: [id number] US TRANSVAGINAL W/PELVIS 01384 CLINICAL HISTORY: 5-6 weeks , bleeding, abnormal hCG levels. COMPARISON: None. Real-time ultrasound examination of the pelvis was performed using transabdominal and endovaginal approach. The uterus measures 8.2 x 3.6 x 4.1 cm in greatest dimensions with endometriummeasuring 6 mm in AP dimension. No well-defined intrauterine sac is noted. There is no evidence of uterine fibroid or other significant uterine abnormality. The right ovary measures 27 x 18 x 25 mm and contains a corpus luteum measuring 15 x 12 x 12 mm. The left ovary measures 27 x 23 x 22 mm and contains a 12 x 12 x 16 mm cyst within it. Separate from the left ovary, there is an 8 x 8 x 9 mm adnexal ring identified. No well-defined yolk sac or embryo is seen within it. Findings although not pathognomonic are somewhat suspicious for a small ectopic on the left side. There isno significant free fluid in the pelvis. IMPRESSION: 1. No evidence of intrauterine . 2. Extraovarian adnexal ring measuring 8 mm without yolk sac or embryo within it although not pathognomonic is suspicious for an ectopic . Correlation with hCG titers and appropriate follow-up is recommended. Findings were communicated to Dr. Vijay Do at 9:40 PM on March 04, 2019. FOR INTERNAL CODING PURPOSES ONLY R ESULT CODE: CVR at 0945 Reported and signed by: Roland Beaulieu MD CC: Dilip Hawkins Vijay Hi BAUTISTATechnologist: Marilynn Cruz RDMS Probe: [id number] Trnscrbd D/ (0945) Jyoti Orig Print D/T: S: 03/04/2019 (0948) [facility] NAME: AC ESCOBAR Radiology Department PHYS: BANNERAD.Jeny - Dilip Montes [address] : 1980 AGE: 38 SEX: F [place] [address] LOC: DuncanRAD PHONE #: [phone] EXAM DATE: 03/04/2019 STATUS: REG CLI FAX #: [phone] RAD NO: Page 1 Signed Report Patient Name: AC ESCOBAR Unit No: [id number] EXAMS: CPT CODE: [id number] US TRANSVAGINAL W/PELVIS 61460 <Continued> [facility] NAME: AC ESCOBAR Radiology Department PHYS: HARAD. - Dilip Montes [address] : 1980 AGE: 38 SEX: F [place] [address] LOC: DuncanRAD PHONE #: [phone] EXAM DATE: 03/04/2019 STATUS: REG CLI FAX #: [phone] RAD NO: Page 2 Signed Report- US PELVIS COMPLETE 2019-03-04 09:45:00 Patient Name: AC ESCOBAR Unit No: [id number] EXAMS: CPT CODE: [id number] US PELVIS COMPLETE 10579 CLINICAL HISTORY: 5- 6 weeks , bleeding, abnormal hCG levels. COMPARISON: None. Real- time ultrasound examination of the pelvis was performed using transabdominal and endovaginal approach. The uterus measures 8.2 x 3.6 x 4.1 cm in greatest dimensions with endometriummeasuring 6 mm in AP dimension. No well-defined intrauterine sac is noted. There is no evidence of uterine fibroid or other significant uterine abnormality. The right ovary measures 27 x 18 x 25 mm and contains a corpus luteum measuring 15 x 12 x 12 mm. The left ovary measures 27 x 23 x 22 mm and contains a 12 x 12 x 16 mm cyst within it. Separate from the left ovary, there is an 8 x 8 x 9 mm adnexal ring identified. No well-defined yolk sac or embryo is seen within it. Findings although not pathognomonic are somewhat suspicious for a small ectopic on the left side. There isno significant free fluid in the pelvis. IMPRESSION: 1. No evidence of intrauterine . 2. Extraovarian adnexal ring measuring 8 mm without yolk sac or embryo within it although not pathognomonic is suspicious for an ectopic . Correlation with hCG titers and approp riate follow-up is recommended. Findings were communicated to Dr. Vijay Do at 9:40 PM on March 04, 2019. FOR INTERNAL CODING PURPOSES ONLY RESULT CODE: CVR at 0945 Reported and signed by: Roland Beaulieu MD CC: Dilip Do MD Technologist: Marilynn Cruz RDMS Probe: Trnscrbd D/ (0945) MiguelangelS Orig Print D/T: S: 03/04/2019 (0948) [facility] NAME: AC ESCOBAR Radiology Department PHYS: AD. - Vijay DoDilip [address] : 1980 AGE: 38 SEX: F [place], [place] [address] LOC: F.RAD PHONE #: [phone] EXAM DATE: 03/04/2019 STATUS: REG CLI FAX #: [phone] RAD NO: Page 1 Signed Report Patient Name: AC ESCOBAR Unit No: [id number] EXAMS: CPT CODE: [id number] US PELVIS COMPLETE 28960 <Continued> [facility] NAME: AC ESCOBAR Radiology Department PHYS: HARAD. - Vijay HiDilip [address] : 1980 AGE: 38 SEX: F [place], [place] [address] LOC: TYLER PHONE #: [phone] EXAM DATE: 03/04/2019 STATUS: KERRI CLI FAX #: [phone] RAD NO: Page 2 Signed Report- US TRANSVAGINAL [id number] 00:00:00 Patient Name: AC ESCOBAR Unit No: [id number] Report Has Been Amended EXAMS: CPT CODE: [id number] US TRANSVAGINAL W/PELVIS 13960 Addendum- 03/04/2019 SIGNED 03/04/2019 ADDENDUM: [id number] US/USPELNOBC [id number] US/TRANPL Please note the last sentence in the report should read as: Findings were communicated to Dr.Harvey Do at 9:40 AM on February. Manually signed by Roland Beaulieu MD Reported and signed by: Roland Beaulieu MD Transcribed: 03/04/2019 (4206) F.BDC.KXR Report CLINICAL HISTORY: 5-6 weeks , bleeding, abnormal hCG levels. COMPARISON: None. Real-time ultrasound examination of the pelvis was performed using transabdominal and endovaginal approach. The uterus measures 8.2 x 3.6 x 4.1 cm in greatest dimensions with endometrium measuring 6 mm in AP dimension. No well-defined intrauterine sac is noted. There is no evidence ofuterine fibroid or other significant uterine abnormality. The right ovary measures 27 x 18 x25 mm and contains a corpus luteum measuring 15 x 12 x 12 mm. The left ovary measures 27 x 23 x 22mm and contains a 12 x 12 x 16 mm cyst within it. Separate from the left ovary, there is an 8 x8 x 9 mm adnexal ring identified. No well-defined yolk sac or embryo is seen within it. Findingsalthough not pathognomonic are somewhat suspicious for a small ectopic on the left side. There is no significant free fluid in the pelvis. IMPRESSION: 1. No evidence of intrauterine . 2. Extraovarian adnexal ring measuring 8 mm without yolk sac or embryo within it althoughnot pathognomonic is suspicious for an ectopic . Correlation with hCG titers and appropriate follow-up is recommended. Findings were communicated to Dr. Vijay Do at 9:40 PM on March 04, 2019. FOR INTERNAL CODING PURPOSES ONLY RESULT CODE: CVR [facility] NAME: AC ESCOBAR Radiology Department PHYS: HARAD. - Dilip Monets [address] : 1980 AGE: 38 SEX: F [place] [address] LOC: Contreras.RAD PHONE #: [phone] EXAM DATE: 03/04/2019 STATUS: REG CLI FAX #: [phone] RAD NO: Page 1 Signed Report (CONTINUED) Patient Name: AC ESCOBAR Unit No: [id number] Report Has Been Amended EXAMS: CPT CODE: [id number] US TRANSVAGINAL W/PELVIS 45200 <Continued> at 0945 Reported and signed by: Roland Beaulieu MD CC: Dilip Do MD Technologist: Marilynn Cruz RDMS Probe: [id number] Trnscrbd D/ (0945) Jyoti Tafoya Print D/T: S: 03/04/2019 (0948) [facility] NAME: AC ESCOBAR Radiology Department PHYS: HARAD. - Dilip Montes [address] : 1980 AGE: 38 SEX: F [place] [address] LOC: F.RAD PHONE #: [phone] EXAM DATE: 03/04/2019 STATUS: REG CLI FAX #: [phone] RAD NO: Page 2 Signed ReportPatient Name: AC ESCOBAR Unit No: [id number] Report Has Been Amended EXAMS: CPT CODE: [id number] US TRANSVAGINAL W/PELVIS 81795 <Continued> [facility] NAME: AC ESCOBAR Radiology Department PHYS: SUDARSHAN - Dilip Montes [address] : 1980 AGE: 38 SEX: F [place], [place] [address] LOC: TYLER PHONE #: [phone] EXAM DATE: 03/04/2019 STATUS: REGCLI FAX #: [phone] RAD NO: Page 3 Signed Report- US PELVIS [id number] 00:00:00 Patient Name: AC ESCOBAR Unit No: [id number] Report Has Been Amended EXAMS: CPT CODE: [id number] US PELVIS COMPLETE 87699 Addendum- 03/04/2019 SIGNED 03/04/2019 ADDENDUM: [id number] US/USPELNOBC [id number] US/TRANPL Please note the last sentence in the report should read as: Findings were communicated to Dr.Harvey Do at 9:40 AM on February. Manually signed by Roland Beaulieu MD Reported and signed by: Roland Beaulieu MD Transcribed: 03/04/2019 (8940) F.BDC.KXR Report CLINICAL HISTORY: 5-6 weeks , bleeding, abnormal hCG levels. COMPARISON: None. Real-time ultrasound examination of the pelvis was performed using transabdominal and endovaginal approach. The uterus measures 8.2 x 3.6 x 4.1 cm in greatest dimensions with endometrium measuring 6 mm in AP dimension. No well-defined intrauterine sac is noted. There is no evidence ofuterine fibroid or other significant uterine abnormality. The right ovary measures 27 x 18 x25 mm and contains a corpus luteum measuring 15 x 12 x 12 mm. The left ovary measures 27 x 23 x 22mm and contains a 12 x 12 x 16 mm cyst within it. Separate from the left ovary, there is an 8 x8 x 9 mm adnexal ring identified. No well-defined yolk sac or embryo is seen within it. Findingsalthough not pathognomonic are somewhat suspicious for a small ectopic on the left side. There is no significant free fluid in the pelvis. IMPRESSION: 1. No evidence of intrauterine . 2. Extraovarian adnexal ring measuring 8 mm without yolk sac or embryo within it althoughnot pathognomonic is suspicious for an ectopic . Correlation with hCG titers and appropr iate follow-up is recommended. Findings were communicated to Dr. Vijay Do at 9:40 PM on March 04, 2019. FOR INTERNAL CODING PURPOSES ONLY RESULT CODE: CVR [facility] NAME: AC ESCOBAR Radiology Department PHYS: [facility].Dilip Crowder [address] : 1980 AGE: 38 SEX: F [place] [address] LOC: DuncanRAD PHONE #: [phone] EXAM DATE: 03/04/2019 STATUS: REG CLI FAX #: [phone] RAD NO: Page 1 Signed Report (CONTINUED) Patient Name: AC ESCOBAR Unit No: [id number] Report Has Been Amended EXAMS: CPT CODE: [id number] US PELVIS COMPLETE 43387 <Continued> at 0945 Reported and signed by: Roland Beaulieu MD CC: Dilip Do MD Technologist: Marilynn Cruz RDMS Probe: Trnscrbd D/ (0945) t.DAIMENR.YOS Orig Print D/T: S: 03/04/2019 (0948) [facility] NAME: ESCOBARBILLA Harjit Radiology Department PHYS: BANNERAD.Dilip Crowder [address] : 1980 AGE: 38 SEX: F [place], [place] [address] LOC: DuncanRAD PHONE #: [phone] EXAM DATE: 03/04/2019 STATUS: REG CLI FAX #: [phone] RAD NO: Page 2 Signed ReportPatient Name: AC ESCOBAR Harjit Unit No: [id number] Report Has Been Amended EXAMS: CPT CODE: [id number] PELVIS COMPLETE 18682 <Continued> The [facility] NAME: AC ESCOBAR Radiology Department PHYS: HARAD.01 - Dilip Montes [address] : 1980 AGE: 38 SEX: F [place], [place] [address] LOC: F.RAD PHONE #: [phone] EXAM DATE: 03/04/2019 STATUS: REGCLI FAX #: [phone] RAD NO: Page 3 Signed Report
[2021-01-27 16:58] LABS: Urine Blood Trace-intact (Negative); Urine Glucose Negative (Negative); Urine Protein Negative (Negative); Urine Specific Gravity >=1.030 (1.005-1.030); Urine pH 5.5 (5.0-7.0)
[2021-01-27 17:14] LABS: Urine Specific Gravity/Preg >1.030 (1.005-1.030)
[2021-01-27 17:35] LABS: Absolute Lymphocytes (CBC) 3.2 K/uL (0.7-4.9); Basophils % 0.8 % (0-1.3); Hematocrit 40.8 % (36.0-45.0); Lymphocytes % 37.6 % (15.3-44.8); MPV 7.8 fL (7.6-11.3); RBC Red Blood Cell Count 4.45 M/uL (3.86-4.86)
[2021-01-27 18:08] LABS: Potassium 3.4 mmol/L (3.5-5.1)
--- NOTE | 2021-01-27 18:45 | RAD REPORT ---
EXAM DESCRIPTION: US - Transvaginal OB - 01/27/2021 6:30 pm CLINICAL HISTORY: with vaginal bleeding COMPARISON: None. FINDINGS: The uterus 8 x 4 x 4 centimeters. The endometrial stripe measures 10 millimeters. A gesta tional sac is not seen. Ovaries are normal size echotexture. A 5 millimeter cystic structure is present within the right adne xal abutting the right ovary. It is surrounded by an echogenic rim. It contains what may be a yolk sa c. Left adnexal unremarkable No significant free fluid IMPRESSION: Nonvisualization of a gestational sac within the endometrium. 5 millimeter cystic structure within the right adnexa has an echogenic ring and may contain a yolk sa c. This may indicate an ectopic . This should be correlated clinically and with appropriate lab values.
--- NOTE | 2021-01-27 19:47 | ER ---
Nurse's Notes [facility] Name: Marielle Orozco Age: 40 yrs Sex: Female : 1980 Arrival Date: 01/27/2021 Time: 16:33 Bed 18 Private MD: Diagnosis: Ectopic Presentation: 01/27 16:41 Chief complaint: Patient states: Pt states she was supposed to start her menstrual ae4 cycle on January 13, did not start until January 18 and has been bleeding ever since. Additionally, she took a test on the 26 of January. Reports lower back pain and vaginal "pressure". Coronavirus screen: Client denies travel out of the [place] in the last 14 days. At this time, the client does not indicate any symptoms associated with coronavirus-19. Ebola Screen: Patient denies travel to an Ebola-affected area in the 21 days before illness onset. No symptoms or risks identified at this time. Initial Sepsis Screen: Does the patient meet any 2 criteria? No. Patient's initial sepsis screen is negative. Does the patient have a suspected source of infection? No. Patient's initial sepsis screen is negative. Risk Assessment: Do you want to hurt yourself or someone else? Patient reports no desire to harm self or others. Onset of symptoms was January 18, 2021. 16:41 Method Of Arrival: Ambulatory ae4 16:41 Acuity: LIZA 3 ae4 Triage Assessment: 16:46 General: Appears in no apparent distress. comfortable, Behavior is calm, cooperative. ae4 Pain: Complains of pain in right lower quadrant and left lower quadrant Pain currently is 2 out of 10 on a pain scale. Neuro: Level of Consciousness is awake, alert, obeys commands, Oriented to person, place, time, situation. Respiratory: Airway is patent Respiratory effort is even, unlabored, Respiratory pattern is regular, symmetrical. : Reports vaginal bleeding that is moderate flow, Vaginal presure. 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 Last tetanus immunization: < 10 years ago Flu vaccine is not up to date. It has been more than one year since last vaccine. - Social history:: Smoking status: Reported history of juuling and/or vaping. Screenin:08 Abuse screen: Denies threats or abuse. Nutritional screening: No deficits noted. vg1 Tuberculosis screening: No symptoms or risk factors identified. Fall Risk No fall in past 12 months (0 pts). No secondary diagnosis (0 pts). IV access (20 points). Ambulatory Aid- None/Bed Rest/Nurse Assist (0 pts). Gait- Normal/Bed Rest/Wheelchair (0 pts) Mental Status- Oriented to own ability (0 pts). Total Sanchez Fall Scale indicates No Risk (0-24 pts). Assessment: 17:06 General: Appears in no apparent distress. distressed, Behavior is cooperative, anxious. vg1 Pain: Complains of pain in right lower quadrant and lower right side of back Quality of pain is described as crampy, pressure. Neuro: Level of Consciousness is awake, alert, obeys commands, Oriented to person, place, time, situation. Cardiovascular: Patient's skin is warm and dry. Respiratory: Airway is patent Respiratory effort is even, unlabored. GI: No signs and/or symptoms were reported involving the gastrointestinal system. : No signs and/or symptoms were reported regarding the genitourinary system. EENT: No signs and/or symptoms were reported regarding the EENT system. Derm: Skin is intact. Musculoskeletal: Circulation, motion, and sensation intact. 18:15 Reassessment: Patient appears in no apparent distress at this time. No changes from vg1 previously documented assessment. Patient and/or family updated on plan of care and expected duration. Pain level reassessed. Patient is alert, oriented x 3, equal unlabored respirations, skin warm/dry/pink. Vital Signs: 16:41 BP 128 / 84; Pulse 101; Resp 18; Temp 98.3(TE); Pulse Ox 100% on R/A; Weight 68.04 kg ae4 (R); Height 5 ft. 4 in. (162.56 cm); Pain 2/10; 17:07 BP 119 / 76; Pulse 98; Resp 18; Pulse Ox 100% on R/A; vg1 18:14 BP 112 / 67; Pulse 80; Resp 14; Pulse Ox 100% on R/A; vg1 16:41 Body Mass Index 25.75 (68.04 kg, 162.56 cm) ae4 ED Course: 16:33 Patient arrived in ED. mr 16:39 Nallely Diop FNP-C is [facility]. kb 16:39 Jenelle Vasquez MD is Attending Physician. kb 16:45 Triage completed. ae4 16:48 Arm band placed on right wrist. ae4 16:50 Joana Camacho, RN is Primary Nurse. vg1 17:08 Patient has correct armband on for positive identification. Placed in gown. Bed in low vg1 position. Call light in reach. Side rails up X 1. 17:13 Initial lab(s) drawn, by me, sent to lab. Inserted saline lock: 20 gauge in right dh3 antecubital area, using aseptic technique. Blood collected. 18:30 US Transvaginal Ob In Process Unspecified. EDMS 18:35 Ultrasound completed. Patient tolerated well. Notified ED Physician nallely. sg3 20:23 Rhogam Sent. ak2 20:44 No provider procedures requiring assistance completed. IV discontinued. ak2 Administered Medications: 20:32 Drug: Methotrexate 75 mg {Note: witnessed by anai.} Route: IM; Site: right ak2 ventrogluteal; Outcome: 19:46 Discharge ordered by MD. kb 20:44 Discharged to home ambulatory. ak2 20:44 Condition: good 20:44 Discharge instructions given to patient. 20:45 Patient left the ED. ak2 Signatures: Dispatcher [employer] EDWA Nallely Diop FNP-C FNP-Pal Cherie Max, Mia 3 Erica Vick sg3 Chang Pfeiffer, RN RN ae4 Joana Camacho, RN RN vg1 Pawel Crowder ak2
--- NOTE | 2021-01-27 19:47 | EDPHYS ---
Physician Documentation [facility] Name: Marielle Orozco Age: 40 yrs Sex: Female : 1980 Arrival Date: 01/27/2021 Time: 16:33 Bed 18 Private MD: ED Physician Jenelle Vasquez HPI: 01/27 18:41 This 40 yrs old Female presents to ER via Ambulatory with complaints of kb Vaginal Bleeding, + Preg <12wks. 18:41 The patient presents to the emergency department with vaginal bleeding, that is kb moderate, with clots. course: care: none, Leakage of Fluid: none appreciated, Ultrasound: the patient has not had an ultrasound, Risk/complications: previous complications- left ectopic last year, tube removed. Previous pregnancies: in previous pregnancies patient has had vaginal delivery, ectopic . Associated signs and symptoms: Pertinent positives: vaginal bleeding, abd pressure. The patient has not experienced similar symptoms in the past. The patient has not recently seen a physician. 18:43 Pt states her period was 5 days late this month, started on 01/17/21 and hasn't stopped. kb States it was heavy with clots for a couple of days. Yesterday she took a test and it was positive. States she has some pressure to lower abd so she wanted to make sure there was no ectopic . States she had an ectopic on the left side last year and had to have the tube removed. 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 Last tetanus immunization: < 10 years ago Flu vaccine is not up to date. It has been more than one year since last vaccine. - Social history:: Smoking status: Reported history of juuling and/or vaping. ROS: 18:39 Constitutional: Negative for fever, chills, and weight loss. kb 18:39 Abdomen/GI: Positive for "pressure to lower abd". 18:39 : Positive for vaginal bleeding. 18:39 All other systems are negative. Exam: 18:39 Constitutional: This is a well developed, well nourished patient who is awake, alert, kb and in no acute distress. Head/Face: Normocephalic, atraumatic. ENT: Moist Mucous membranes Cardiovascular: Regular rate and rhythm with a normal S1 and S2. No gallops, murmurs, or rubs. No pulse deficits. Respiratory: Respirations even and unlabored. No increased work of breathing, no retractions or nasal flaring. Skin: Warm, dry with normal turgor. Normal color. MS/ Extremity: Pulses equal, no cyanosis. Neurovascular intact. Full, normal range of motion. Neuro: Awake and alert, GCS 15, oriented to person, place, time, and situation. Moves all extremities. Normal gait. Psych: Awake, alert, with orientation to person, place and time. Behavior, mood, and affect are within normal limits. 18:39 Abdomen/GI: Inspection: abdomen appears normal, Bowel sounds: normal, in all quadrants, Palpation: soft, in all quadrants, mild abdominal tenderness, in the right lower quadrant, "pressure". Vital Signs: 16:41 BP 128 / 84; Pulse 101; Resp 18; Temp 98.3(TE); Pulse Ox 100% on R/A; Weight 68.04 kg ae4 (R); Height 5 ft. 4 in. (162.56 cm); Pain 2/10; 17:07 BP 119 / 76; Pulse 98; Resp 18; Pulse Ox 100% on R/A; vg1 18:14 BP 112 / 67; Pulse 80; Resp 14; Pulse Ox 100% on R/A; vg1 16:41 Body Mass Index 25.75 (68.04 kg, 162.56 cm) ae4 MDM: 16:50 Patient medically screened. kb 18:38 Data reviewed: vital signs, nurses notes. Data interpreted: Pulse oximetry: on room air kb is 100 %. Interpretation: normal. 18:54 Physician consultation: Samy Alfaro MD was called at 18:54, regarding consult, kb patient's condition, would like consultation with Dr. Bowles. 18:59 Physician consultation: Dariela Bowles MD was contacted at 18:59, regarding consult, shala patient's condition, recommends medical management with methotrexate because pt wants to keep the tube if possible. . 19:43 Physician consultation: Samy Alfaro MD was contacted at 19:44, regarding consult, shala patient's condition, Informed of Dr Bowles's recommendation. Ordered methotrexate 75mg IM now and for pt to follow up with him or Dr Bowles tomorrow. 19:45 ED course: Pt informed of all instructions and is in agreement with plan of care. Pt shala will follow up with her OB at [facility] tomorrow for further management. . 01/27 16:55 Order name: Quantitative Hcg; Complete Time: 18:08 01/27 16:55 Order name: Abo/rh Typing 01/27 16:55 Order name: Basic Metabolic Panel; Complete Time: 18:08 01/27 16:55 Order name: CBC with Diff; Complete Time: 17:54 01/27 16:57 Order name: Urine Dipstick-Ancillary; Complete Time: 17:03 [facility] 01/27 16:59 Order name: Urine --Ancillary (enter results); Complete Time: 17:19 em1 01/27 18:09 Order name: Rhogam 01/27 18:21 Order name: Rh Typing [facility] 01/27 18:21 Order name: Antibody Screen [facility] 01/27 16:46 Order name: Urine Test (obtain specimen); Complete Time: 16:59 01/27 16:46 Order name: Urine Dipstick-Ancillary (obtain specimen); Complete Time: 16:59 01/27 16:55 Order name: IV Saline Lock; Complete Time: 17:22 01/27 16:55 Order name: Labs collected and sent; Complete Time: 17:22 01/27 16:55 Order name: NPO; Complete Time: 17:05 01/27 16:55 Order name: US Transvaginal Ob; Complete Time: 18:53 01/27 18:21 Order name: Fetalscreen [facility] 01/27 18:21 Order name: Cord Rh type [facility] 01/27 18:21 Order name: Rhogam [facility] Administered Medications: 20:32 Drug: Methotrexate 75 mg {Note: witnessed by anai.} Route: IM; Site: right ak2 ventrogluteal; Disposition: 01/27/21 19:46 Discharged to Home. Impression: Ectopic . - Condition is Stable. - Discharge Instructions: Ectopic , Johq-yi-Eats, Methotrexate Treatment for an Ectopic , Care After. - Medication Reconciliation Form, Thank You Letter, Antibiotic Education, Prescription Opioid Use form. - Follow up: Emergency Department; When: As needed; Reason: Worsening of condition. Follow up: Private Physician; When: Tomorrow; Reason: Recheck today's complaints, Continuance of care, Re-evaluation by your physician. Addendum: 01/31/2021 06:59 Co-signature as Attending Physician, Jenelle Vasquez MD. m a2 Signatures: Dispatcher [employer] EDNallely Santizo, NETWORK FIELD ENGINEER-C NETWORK FIELD ENGINEER-CkJenelle Stock MD MD ma2 Chang Pfeiffer, RN RN ae4 Pawel Crowder2 Corrections: (The following items were deleted from the chart) 01/27 18:20 18:10 Rhogam ordered. EDKY EDMS 18:20 18:10 Rh Typing ordered. EDMS EDMS 18:20 18:10 Antibody Screen ordered. EDMS EDMS 18:20 18:10 Fetalscreen ordered. EDKY EDMS 18:20 18:10 Cord Rh type ordered. EDKY EDMS 20:45 19:46 01/27/2021 19:46 Discharged to Home. Impression: Ectopic . Condition is ak2 Stable. Forms are Medication Reconciliation Form, Thank You Letter, Antibiotic Education, Prescription Opioid Use. Follow up: Emergency Department; When: As needed; Reason: Worsening of condition. Follow up: Private Physician; When: Tomorrow; Reason: Recheck today's complaints, Continuance of care, Re-evaluation by your physician. kb
[2021-01-27 20:55] VITALS: TEMP 98.3; O2SAT 100
[2021-01-27] MEDS ORDERED: METHOTREXATE 25 MG/ML VIAL IM ONE (21:00)
[2021-01-27 21:04] VITALS: BP 112/67
== END 2021-01-27 20:45 | disposition home or self-care (01) ==
LOC: ER 16:30
DX: O00.90 Unspecified ectopic pregnancy without intrauterine pregnancy (principal); E03.9 Hypothyroidism, unspecified
CPT/HCPCS: 85025; 80048; 36415; 86900; 86850; 81025; 86901 ×2; 84702; 81003; 76817; J2790; J9260; 96372; 99284

== ENCOUNTER 2024-10-13 12:11 | Emergency (ER) | payer OTHER ==
[2024-10-13 13:48] LABS: Absolute Basophils 0.1 K/uL (0-0.5); Absolute Eosinophils 0.1 K/uL (0-0.5); Absolute Monocytes 0.7 K/uL (0.1-1.3); Absolute Neutrophil 5.7 K/uL (1.8-8.0); Basophils % 0.7 % (0-1.3); Eosinophils % 0.7 % (0-4.4); Hematocrit 41.5 % (36.0-45.0); Hemoglobin 14.2 g/dL (12.0-15.0); Lymphocytes % 23.7 % (15.3-44.8); MCHC 34.1 g/dL (32.0-36.0); MCV 93.8 fL (80-100); MPV 7.4 fL (7.6-11.3); Monocytes % 8.1 % (3.3-12.3); Neutrophils % 66.8 % (41.7-73.7); Platelets 253 thou/uL (152-406); RBC Red Blood Cell Count 4.42 M/uL (3.86-4.86); Red Cell Distribution Width 13.5 % (12.1-15.2)
[2024-10-13 13:53] LABS: PT Prothrombin Time 11.3 SECONDS (9.4-12.5); Protime INR 1.08
--- NOTE | 2024-10-13 13:53 | RAD REPORT ---
EXAM: CT Head Brain Wo Cont HISTORY: DIZZINESS COMPARISON: None TECHNIQUE: Multiple contiguous axial images were obtained for a CT of the brain without contrast. Sag ittal and coronal reformats were performed. One or more of the following dose reduction techniques were used: Automated exposure control, adjus tment of the mA and kV according to patient size, and iterative reconstruction. Unless otherwise specified, incidental findings do not require dedicated imaging follow-up. FINDINGS: No evidence of hydrocephalus, intracranial hemorrhage, or extra-axial fluid collection. The brain is normal in morphology. The calvarium is intact. The visualized paranasal sinuses and mastoid air cells are essentially clear . IMPRESSION: No evidence of acute intracranial abnormality.
--- NOTE | 2024-10-13 13:55 | RAD REPORT ---
EXAMINATION: ONE VIEW CHEST XR CLINICAL INDICATION: Female, 43 years old.,COUGH TECHNIQUE: Frontal chest projection is submitted. Examination is limited by patient positioning and t echnique. COMPARISON: No prior exam. FINDINGS: The lungs are well inflated and clear. No pneumothorax or sizable effusion. The heart is normal in s ize. Mediastinal contours are unremarkable. IMPRESSION: No acute intrathoracic abnormalities.
[2024-10-13] MEDS ORDERED: NA CHLORIDE 0.9% 1,000 ML ONE (14:07)
[2024-10-13] MEDS ORDERED: ONDANSETRON 4 MG/2 ML VIAL ONE (14:07)
[2024-10-13 14:22] LABS: ALT/SGPT 56 U/L (13-56); Albumin 3.4 g/dL (3.4-5.0); Albumin/Globulin Ratio 0.9 (1.1-1.8); Alkaline Phosphatase 108 U/L (45-117); Anion Gap 9.2 mEq/L (5.0-15.0); BUN Blood Urea Nitrogen 15 mg/dL (7-18); Bicarbonate 22 mEq/L (21-32); Bilirubin Total 0.3 mg/dL (0.2-1.0); Glomerular Filtration Rate 77 ml/min (=/>90); Glucose Level 87 mg/dL (74-106); NT PRO-BNP 71 pg/mL (<125); Protein, Total 7.4 g/dL (6.4-8.2); Sodium Level 138 mEq/L (136-145); Troponin High Sensitivity 8.9 pg/mL (<58.9)
[2024-10-13 14:25] LABS: AST/SGOT 40 U/L (15-37); Bilirubin Direct < 0.2 mg/dL (0-0.2); Bilirubin Indirect, Calculated 0.1 mg/dL (0.2-0.8); Magnesium 2.1 mg/dL (1.6-2.4); Potassium 4.2 mEq/L (3.5-5.1)
--- NOTE | 2024-10-13 14:56 | ER ---
Nurse's Notes [facility] Name: Marielle Orozco Age: 43 yrs Sex: Female : 1980 Arrival Date: 10/13/2024 Time: 12:11 Bed DX4 Private MD: Diagnosis: Dizziness and giddiness;Syncope Near Presentation: 10/13 12:39 Chief complaint: Patient states: sitting at work and became dizzy, nauseated, blurred me1 vision. Went to urgent care and BGL 89, NSR on EKG. + orthostasis. Coronavirus screen: Vaccine status: Patient reports being unvaccinated. Ebola Screen: No symptoms or risks identified at this time. Initial Sepsis Screen: Does the patient meet any 2 criteria? No. Patient's initial sepsis screen is negative. Does the patient have a suspected source of infection? No. Patient's initial sepsis screen is negative. Risk Assessment: Do you want to hurt yourself or someone else? Patient reports no desire to harm self or others. Onset of symptoms was October 13, 2024 at 11:00. 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 - Infectious Disease History:: Denies. - Social history:: Smoking status: Reported history of juuling and/or vaping. - Family history:: not pertinent. Screenin:00 [facility] ED Fall Risk Assessment (Adult) History of falling in the last 3 months, iw including since admission No falls in past 3 months (0 pts) Confusion or Disorientation No (0 pts) Intoxicated or Sedated No (0 pts) Impaired Gait No (0 pts) Mobility Assist Device Used No (0 pt) Altered Elimination No (0 pt) Score/Fall Risk Level 0 - 2 = Low Risk Oriented to surroundings, Maintained a safe environment. 15:46 Abuse screen: Denies threats or abuse. Denies injuries from another. Nutritional jl7 screening: No deficits noted. Tuberculosis screening: No symptoms or risk factors identified. Assessment: 13:40 General: Appears in no apparent distress. Behavior is calm, cooperative. Pain: iw Complains of pain in head. Neuro: Level of Consciousness is awake, alert, obeys commands, Oriented to person, place, time, situation, Moves all extremities. Full function. Neuro: Reports dizziness. Cardiovascular: Patient's skin is warm and dry. Cardiovascular: Reports lightheadedness, palpitations. Respiratory: Respiratory effort is even, unlabored, Respiratory pattern is regular, symmetrical. GI: Abdomen is non-distended. Derm: Skin is intact, is healthy with good turgor. Musculoskeletal: Range of motion: intact in all extremities. 15:00 Reassessment: Patient appears in no apparent distress at this time. Patient and/or iw family updated on plan of care and expected duration. Pain level reassessed. Patient is alert, oriented x 3, equal unlabored respirations, skin warm/dry/pink. Vital Signs: 12:39 BP 127 / 79; Pulse 70; Resp 16; Temp 98.7; Pulse Ox 100% ; Weight 77.11 kg; Height 5 me1 ft. 4 in. ; Pain 0/10; 15:45 BP 108 / 77 Supine; Pulse 58; Resp 15; Pulse Ox 100% ; jl7 15:45 BP 116 / 72 Standing; Pulse 61; jl7 12:39 Body Mass Index 29.18 (77.11 kg, 162.56 cm) me1 12:39 Pain Scale: Adult tn1 ED Course: 12:14 Patient arrived in ED. im 12:22 Aleksandar Mann MD is Attending Physician. jim 12:41 Triage completed. me1 12:41 Arm band placed on Patient placed in waiting room. me1 13:00 CT Head Brain wo Cont In Process Unspecified. EDMS 13:19 XRAY Chest (1 view) In Process Unspecified. EDMS 13:39 Initial lab(s) drawn, by me, sent to lab. Inserted saline lock: 22 gauge in left wrist, iw using aseptic technique. Blood collected. Flushed with 10 mL NS. 13:53 Maria M Lopez, RN is Primary Nurse. iw 15:46 Patient has correct armband on for positive identification. Provided Education on: jl7 discharge. 15:46 No provider procedures requiring assistance completed. IV discontinued, intact, jl7 bleeding controlled, No redness/swelling at site. Pressure dressing applied. Administered Medications: 14:18 Drug: NS 0.9% IV 1000 ml IV at 1000 ml once; to be given as a bolus over 60 minutes jl7 Route: IV; Rate: 1000 ml; Site: left antecubital; 15:46 Follow up: Response: No adverse reaction; IV Status: Completed infusion; IV Intake: jl7 800ml 14:18 Drug: Ondansetron IVP 4 mg IVP once; over 2 minutes Route: IVP; Site: left hand; jl7 15:46 Follow up: Response: No adverse reaction; Nausea is decreased jl7 Intake: 15:46 IV: 800ml; Total: 800ml. jl7 Outcome: 14:55 Discharge ordered by . jim 15:46 Discharged to home ambulatory, [facility] 15:46 Condition: stable 15:46 Discharge instructions given to patient, Instructed on discharge instructions, follow up and referral plans. medication usage, Demonstrated understanding of instructions, follow-up care, medications, Prescriptions given X 1, 15:47 Patient left the ED. jl7 Signatures: Dispatcher [employer] EDAleksandar Pierre MD MD cha Williams, Irene, RN Lexx Rangel RN RN jl7 Caryn Thompson Michelle, RYANNE RN me1
--- NOTE | 2024-10-13 14:56 | EDPHYS ---
Physician Documentation [facility] Name: Marielle Orozco Age: 43 yrs Sex: Female : 1980 Arrival Date: 10/13/2024 Time: 12:11 Bed DX4 Private MD: ED Physician Aleksandar Mann HPI: 10/13 14:49 This 43 yrs old Female presents to ER via Ambulatory with complaints of jim Dizziness, Blurred Vision, Nausea. 14:49 The patient presents with dizziness, feeling faint, generalized weakness, jim lightheadedness. Onset: The symptoms/episode began/occurred just prior to arrival. Context: occurred at work. Modifying factors: The symptoms are alleviated by nothing, the symptoms are aggravated by nothing. Associated signs and symptoms: The patient has no apparent associated signs or symptoms. Severity of symptoms: At their worst the symptoms were moderate in the emergency department the symptoms have improved moderately. Patient's baseline: Neuro: alert and fully oriented. The patient has not experienced similar symptoms in the past. 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 - Infectious Disease History:: Denies. - Social history:: Smoking status: Reported history of juuling and/or vaping. - Family history:: not pertinent. ROS: 14:49 Constitutional: Negative for fever, chills, and weight loss, Eyes: Negative for injury, jim pain, redness, and discharge, ENT: Negative for injury, pain, and discharge, Neck: Negative for injury, pain, and swelling, Cardiovascular: Negative for chest pain, palpitations, and edema, Respiratory: Negative for shortness of breath, cough, wheezing, and pleuritic chest pain, Abdomen/GI: Negative for abdominal pain, nausea, vomiting, diarrhea, and constipation, Back: Negative for injury and pain, : Negative for injury, bleeding, discharge, and swelling, MS/Extremity: Negative for injury and deformity, Skin: Negative for injury, rash, and discoloration, Neuro: Negative for headache, weakness, numbness, tingling, and seizure, Psych: Negative for depression, anxiety, suicide ideation, homicidal ideation, and hallucinations, Allergy/Immunology: Negative for hives, rash, and allergies, Endocrine: Negative for neck swelling, polydipsia, polyuria, polyphagia, and marked weight changes, Hematologic/Lymphatic: Negative for swollen nodes, abnormal bleeding, and unusual bruising, 14:49 Neuro: Positive for dizziness, near syncope, Exam: 14:49 Constitutional: This is a well developed, well nourished patient who is awake, alert, jim and in no acute distress. Head/Face: Normocephalic, atraumatic. Eyes: Pupils equal round and reactive to light, extra-ocular motions intact. Lids and lashes normal. Conjunctiva and sclera are non-icteric and not injected. Cornea within normal limits. Periorbital areas with no swelling, redness, or edema. ENT: Nares patent. No nasal discharge, no septal abnormalities noted. Tympanic membranes are normal and external auditory canals are clear. Oropharynx with no redness, swelling, or masses, exudates, or evidence of obstruction, uvula midline. Mucous membranes moist. Neck: Trachea midline, no thyromegaly or masses palpated, and no cervical lymphadenopathy. Supple, full range of motion without nuchal rigidity, or vertebral point tenderness. No Meningismus. Chest/axilla: Normal chest wall appearance and motion. Nontender with no deformity. No lesions are appreciated. Cardiovascular: Regular rate and rhythm with a normal S1 and S2. No gallops, murmurs, or rubs. Normal PMI, no JVD. No pulse deficits. Respiratory: Lungs have equal breath sounds bilaterally, clear to auscultation and percussion. No rales, rhonchi or wheezes noted. No increased work of breathing, no retractions or nasal flaring. Abdomen/GI: Soft, non-tender, with normal bowel sounds. No distension or tympany. No guarding or rebound. No evidence of tenderness throughout. Back: No spinal tenderness. No costovertebral tenderness. Full range of motion. Skin: Warm, dry with normal turgor. Normal color with no rashes, no lesions, and no evidence of cellulitis. MS/ Extremity: Pulses equal, no cyanosis. Neurovascular intact. Full, normal range of motion., bilateral aka Neuro: Awake and alert, GCS 15, oriented to person, place, time, and situation. Cranial nerves II-XII grossly intact. Motor strength 5/5 in all extremities. Sensory grossly intact. Cerebellar exam normal. Normal gait. Psych: Awake, alert, with orientation to person, place and time. Behavior, mood, and affect are within normal limits. 14:49 ECG was reviewed by the Attending Physician. Vital Signs: 12:39 BP 127 / 79; Pulse 70; Resp 16; Temp 98.7; Pulse Ox 100% ; Weight 77.11 kg; Height 5 me1 ft. 4 in. ; Pain 0/10; 15:45 BP 108 / 77 Supine; Pulse 58; Resp 15; Pulse Ox 100% ; jl7 15:45 BP 116 / 72 Standing; Pulse 61; jl7 12:39 Body Mass Index 29.18 (77.11 kg, 162.56 cm) me1 12:39 Pain Scale: Adult me1 MDM: 12:22 Medical Screening Exam initiated jim 14:53 Differential diagnosis: cardiac arrhythmia, generalized weakness, GI bleed, jim hypovolemia, idiopathic dizziness, near-syncope, , syncope, TIA, vertigo. Data reviewed: vital signs, nurses notes, lab test result(s), EKG, radiologic studies, plain films. Consideration of Admission/Observation Patient was admitted/placed on observation. Escalation of care including admission/observation considered. I considered the following discharge prescriptions or medication management in the emergency department Medications were administered in the Emergency Department. See MAR. Independent interpretation of the following test(s) in the Emergency Department EKG: See my EKG interpretation above. Test considered but Not performed: Ultrasound no 2 d echo. Historians other than the Patient: Family Member: family well informed. Care significantly affected by the following chronic conditions: hypothyroid. Counseling: I had a detailed discussion with the patient and/or guardian regarding the historical points, exam findings, and any diagnostic results supporting the discharge/admit diagnosis, lab results, radiology results, the need for outpatient follow up, for definitive care, a family practitioner. 10/13 12:23 Order name: Basic Metabolic Panel; Complete Time: 14:44 [facility] 10/13 12:23 Order name: CBC with Diff; Complete Time: 14:24 [facility] 10/13 12:23 Order name: LFT's; Complete Time: 14:44 [facility] 10/13 12:23 Order name: Magnesium; Complete Time: 14:44 [facility] 10/13 12:23 Order name: NT PRO-BNP; Complete Time: 14:44 [facility] 10/13 12:23 Order name: PT-INR; Complete Time: 14:24 [facility] 10/13 12:23 Order name: Troponin HS; Complete Time: 14:44 [facility] 10/13 12:23 Order name: Urinalysis w/ reflexes [facility] 10/13 12:23 Order name: PREGU [facility] 10/13 12:23 Order name: XRAY Chest (1 view); Complete Time: 14:24 [facility] 10/13 12:23 Order name: CT Head Brain wo Cont; Complete Time: 14:24 [facility] 10/13 12:23 Order name: EKG - Nurse/Tech; Complete Time: 15:43 [facility] 10/13 12:23 Order name: IV Saline Lock; Complete Time: 14:11 [facility] 10/13 12:23 Order name: Labs collected and sent; Complete Time: 14:11 [facility] 10/13 12:23 Order name: O2 Per Protocol; Complete Time: 14:11 [facility] 10/13 12:23 Order name: O2 Sat Monitoring; Complete Time: 14:11 [facility] 10/13 14:49 Order name: Misc. Order: get urine and preg back before dispo; Complete Time: 15:46 [facility] 10/13 14:49 Order name: Orthostatics; Complete Time: 15:46 [facility] EC:49 Rate is 63 beats/min. Rhythm is regular. QRS Luther is Normal. NH interval is normal. QRS jim interval is normal. QT interval is normal. No Q waves. T waves are Normal. No ST changes noted. Clinical impression: NSR w/ Non-specific ST/T Changes and No evidence of ischemia. Interpreted by me. Reviewed by me. Administered Medications: 14:18 Drug: NS 0.9% IV 1000 ml IV at 1000 ml once; to be given as a bolus over 60 minutes jl7 Route: IV; Rate: 1000 ml; Site: left antecubital; 15:46 Follow up: Response: No adverse reaction; IV Status: Completed infusion; IV Intake: jl7 800ml 14:18 Drug: Ondansetron IVP 4 mg IVP once; over 2 minutes Route: IVP; Site: left hand; jl7 15:46 Follow up: Response: No adverse reaction; Nausea is decreased jl7 Disposition Summary: 10/13/24 14:55 Discharge Ordered Notes: Location: Home jim Problem: new jim Symptoms: have improved jim Condition: Fair jim Diagnosis - Dizziness and giddiness jim - Syncope Near jim Followup: jim - With: Private Physician - When: 2 - 3 days - Reason: Recheck today's complaints, Continuance of care, Re-evaluation by your physician Discharge Instructions: - Discharge Summary Sheet jim - Dizziness jim - Near-Syncope jim - Near-Syncope, [id number] jim - Weakness, [id number] jim Forms: - Medication Reconciliation Form jim - Antibiotic Education jim - Prescription Opioid Use jim - Patient Portal Instructions jim - Leadership Thank You Letter [facility] Prescriptions: - ondansetron 4 mg Oral Tablet,disintegrating - take 1 tablet ORAL route every 6-8 hours for 5 days prn nausea; 20 tablet; jim Refills: 0, Product Selection Permitted Signatures: Dispatcher [employer] EDMS Aleksandar Mann MD MD cha Leal, Jahala RN RN jl7 Margot Meeks RN RN me1 Corrections: (The following items were deleted from the chart) 12:24 12:24 BASIC METABOLIC PANEL+C.LAB.BRZ ordered. EDMS EDMS 12:24 12:24 CBC+H.LAB.BRZ ordered. EDMS EDMS 12:24 12:24 HEPATIC FUNCTION+C.LAB.BRZ ordered. EDMS EDMS 12:24 12:24 MAGNESIUM+C.LAB.BRZ ordered. EDMS EDMS 12:24 12:24 PROBNP+C.LAB.BRZ ordered. EDMS EDMS 12:24 12:24 PROTIME (+INR)+COAG.LAB.BRZ ordered. EDMS EDMS 12:24 12:24 Troponin High Sensitivity+C.LAB.BRZ ordered. EDMS EDMS 12:24 12:24 Urinalysis+U.LAB.BRZ ordered. EDMS EDMS 12:24 12:24 Test, Urine+UC.LAB.BRZ ordered. EDMS EDMS 12:24 12:24 Chest Single View+RAD.RAD.BRZ ordered. EDMS EDMS 12:24 12:24 Head Brain Wo Cont+CT.RAD.BRZ ordered. EDMS EDMS
[2024-10-13 15:12] LABS: Specific Gravity 1.021 (1.005-1.030)
[2024-10-13 15:13] LABS: Specific Gravity 1.021 (1.005-1.030); Sqamous Epithelial <5 /HPF (None Seen); Urine Bacteria <20 /HPF (<20); Urine Bilirubin NEGATIVE (Negative); Urine Blood Trace (Negative); Urine Clarity Clear (Clear); Urine Color Light-Yellow (Yellow); Urine Culture Reflex Order NOT NEEDED; Urine Glucose NEGATIVE (Negative); Urine Ketones NEGATIVE (Negative); Urine Microscopic Reflex YN ORDER UMIC; Urine Mucus Slight /HPF (None Seen); Urine Nitrite NEGATIVE (Negative); Urine Protein NEGATIVE (Negative); Urine Urobilinogen Normal (Normal); Urine WBC <5 /HPF (<5); Urine Yeast (Budding) Trace /HPF (None Seen)
[2024-10-13 15:52] VITALS: TEMP 98.7; O2SAT 100
[2024-10-13 15:53] VITALS: BP 116/72
--- NOTE | 2024-10-14 13:41 | EKG ---
Test Date: 2024-10-13 Test Time: 14:38:32 Offset Proof Press Operator: NGOZI MEASUREMENT RESULTS: Intervals: Rate: 63 ME: 144 QRSD: 74 QT: 410 QTc: 419 [place]: P: 74 ME: 144 QRS: 73 T: 45 INTERPRETIVE STATEMENTS: Sinus rhythm with marked sinus arrhythmia Otherwise normal ECG No previous ECG available for comparison Electronically Signed On 10-14-24 13:38:29 ELECTRIC TRIPPER MACHINE OPERATOR by Isaias Gupta
== END 2024-10-13 15:47 | disposition home or self-care (01) ==
LOC: ER 12:11
DX: R42 Dizziness and giddiness (principal); R55 Syncope and collapse; R53.1 Weakness
CPT/HCPCS: 96361; 93005; 85025; 81001; 80048; 36415; 83735; 81025; 85610; 80076; 84484; 83880; 70450; 71045; 96374; 99284; J2405; J7030